=== PATIENT | female | born 1980 | race Caucasian/White ===

== ENCOUNTER 2020-06-10 15:27 | Emergency (ER) | payer BC ==
[2020-06-10 16:50] LABS: HEMOGLOBIN 13.5 gm/dl (12.3-15.3); RED BLOOD COUNT 4.65 M/UL (4.00-5.10); WHITE BLOOD COUNT 10.5 K/UL (4.5-11.0)
[2020-06-10 17:19] LABS: BUN/CREATININE RATIO 17 (0-10)
[2020-06-10] MEDS ORDERED: IBUPROFEN600 MG PO (19:02)
[2020-06-10] MEDS ORDERED: CYCLOBENZAPRINE10 MG PO (19:02)
== END 2020-06-10 19:22 | disposition home or self-care (01) ==
LOC: ER1 15:27
PROVIDERS: Emergency Medicine
DX: M51.36 Other intervertebral disc degeneration, lumbar region (principal); K80.20 Calculus of gallbladder without cholecystitis without obstruction
CPT/HCPCS: 72131; 80048; 84703; 85025; 85652; 86140; 96374; 96375; 99284; J2270; J2405